=== PATIENT | female | born 1995 | race Native Hawaiian/Other Pacific Islander ===

== ENCOUNTER 2020-07-14 10:44 | Outpatient (CLI) | payer OTHER | END 2020-07-14 22:02 | disposition home or self-care (01) | LOC: RAD 10:44 | PROVIDERS: ATTEND Internal Medicine Rheumatology | DX: M06.4 Inflammatory polyarthropathy (principal); M54.5 Low back pain ==

== ENCOUNTER 2022-01-26 08:25 | Outpatient (CLI) | payer OTHER | END 2022-01-26 19:16 | disposition home or self-care (01) | LOC: MAMMO 08:25 | PROVIDERS: ATTEND Nurse Practitioner Family | DX: N63.10 Unspecified lump in the right breast, unspecified quadrant (principal) ==

== ENCOUNTER 2022-08-24 07:54 | Outpatient (CLI) | payer OTHER | END 2022-08-24 19:08 | disposition home or self-care (01) | LOC: RAD 07:54 | PROVIDERS: ATTEND Physician Assistant | DX: M54.12 Radiculopathy, cervical region (principal) ==

== ENCOUNTER 2022-10-01 10:04 | Outpatient (CLI) | payer OTHER | END 2022-10-01 19:09 | disposition home or self-care (01) | LOC: MRI 10:04 | PROVIDERS: ATTEND Physician Assistant | DX: M54.12 Radiculopathy, cervical region (principal) ==